=== PATIENT | female | born 1965 | race Caucasian/White ===

== ENCOUNTER → 2018-08-03 | Outpatient (CLI) | payer OTHER ==
[~2018-08-03] MED LIST: IBUP-1222 PO; METO25TA35 PO; TRAM50TA2 PO
== END | disposition home or self-care (01) ==
LOC: CFH 14:07
PROVIDERS: ATTEND Family Medicine
DX: N20.0 Calculus of kidney (principal); N85.2 Hypertrophy of uterus; K76.0 Fatty (change of) liver, not elsewhere classified; M41.80 Other forms of scoliosis, site unspecified
CPT/HCPCS: 74176

== ENCOUNTER → 2019-04-02 | Outpatient (CLI) | payer OTHER | END | disposition home or self-care (01) | LOC: RAD 09:40 | PROVIDERS: ATTEND Internal Medicine | DX: R11.2 Nausea with vomiting, unspecified (principal) | CPT/HCPCS: 78264; A9541 ==

== ENCOUNTER 2019-08-28 22:10 | Emergency (ER) | payer OTHER ==
[~2019-08-28] VITALS: Ht 165.1 cm; Wt 89.2 kg
[2019-08-28] MEDS ORDERED: ONDANSETRON 2MG/ML, 2ML ONE (22:40)
[2019-08-28] MEDS ORDERED: KETOROLAC 30 MG/1 ML ONE (22:40)
[2019-08-28 22:44] LABS: BASOPHILS # (AUTO) 0.07 x10^3/uL (0-0.1); BASOPHILS % (AUTO) 1 % (0-1); EOSINOPHILS # (AUTO) 0.41 x10^3/uL (0-0.4); EOSINOPHILS % (AUTO) 3 % (1-7); LYMPHOCYTES # (AUTO) 4.48 x10^3/uL (1-3.4); LYMPHOCYTES % (AUTO) 32 % (22-44); MD NO; MEAN CORPUSCULAR HEMOGLOBIN 27.9 pg (27.0-34.8); MEAN CORPUSCULAR HGB CONC 32.8 g/dL (32.4-35.8); MEAN PLATELET VOLUME 8.2 fL (7.4-10.4); MONOCYTES # (AUTO) 0.78 x10^3/uL (0.2-0.8); MONOCYTES % (AUTO) 6 % (2-9); NEUTROPHILS # (AUTO) 8.34 x10^3/uL (1.8-6.8); NEUTROPHILS % (AUTO) 59 % (42-75); PLATELET COUNT 253 x10^3/uL (130-400); RED BLOOD COUNT 5.45 x10^6/uL (3.82-5.3)
--- NOTE | 2019-08-28 22:52 | NUR ---
PT TO THE ER WITH C/O SUDDEN ONSET RIGHT SIDED FLANK PAIN. REPORTS HX OF STONES. REPORTS FEELS SIMILAR. NO FEVER. NO VOMITING. POST MENOPAUSAL. HX OF LITHROTRIPSY FOR STONE REMOVAL.
[2019-08-28 22:57] LABS: ANION GAP 10 mmol/L (5-15); CALCIUM 9.6 mg/dL (8.5-10.1); CHLORIDE 111 mmol/L (98-107); CREATININE 1.33 mg/dL (0.55-1.02)
[2019-08-28 23:00] LABS: MICROSCOPIC AUTO
[2019-08-28] MEDS ORDERED: ONDANSETRON 2MG/ML, 2ML IVPush ONE (23:00)
[2019-08-28] MEDS ORDERED: MORPHINE SULFATE 4 MG/ML, 1ML IVPush ONE (23:00)
[2019-08-28 23:07] LABS: CULTURE INDICATED? YES
[2019-08-28] MEDS ORDERED: ACETAMINOPHEN 500 MG TABLET ONE (23:21)
[2019-08-28] MEDS ORDERED: ACETAMINOPHEN 500 MG TABLET PO ONE (23:30)
--- NOTE | 2019-08-28 23:31 | NUR ---
PATIENT REPORTS PAIN NOW 12/01 AFTER TORADOL. PATIENT WAS OFFERED TYLENOL AND MORPHINE FOR PAIN AND SHE REFUSED AND SAID THAT BOTH OF THESE MEDICATIONS CAUSE "REBOUND MIGRAINES" WHEN SHE TAKES THEM.
[2019-08-28] MEDS ORDERED: MORPHINE SULFATE 4 MG/ML, 1ML ONE (23:36)
--- NOTE | 2019-08-28 23:54 | NUR ---
RECEIVED MORPHINE AND REPORTS PAIN NOW 08/31.
[2019-08-28 23:55] VITALS: BP 157/70
[2019-08-29] MEDS ORDERED: MORPHINE SULFATE 4 MG/ML, 1ML IVPush ONE
== END 2019-08-29 00:07 | disposition home or self-care (01) ==
LOC: ED 23:01
DX: N13.2 Hydronephrosis with renal and ureteral calculous obstruction (principal); R10.31 Right lower quadrant pain; K59.00 Constipation, unspecified; I10 Essential (primary) hypertension; G43.909 Migraine, unspecified, not intractable, without status migrainosus
CPT/HCPCS: 36415; 74176; 80048; 81001; 85025; 87086; 96374; 96375; 99284; J2270; J2405